=== PATIENT | male | born 1990 ===

== ENCOUNTER 2017-09-16 20:28 | Observation (INO) | payer MEDICAID ==
[2017-09-16] MEDS ORDERED: Sodium Chloride 0.9% 1,000 ML IV STA (20:43)
--- NOTE | 2017-09-16 20:49 | ED PDOC ---
HPI: General Adult Time Seen by Provider: 09/16/17 20:33 Chief Complaint (Nursing): ENT Problem Chief Complaint (Provider): ENT Problem History Per: Patient History/Exam Limitations: no limitations Onset/Duration Of Symptoms: Days (x 6 days) Current Symptoms Are (Timing): Still Present Additional Complaint(s): Gabriel Tee is a 26 year old male who presents to the emergency department for medical evaluation. Patient states since September 11, he had left-sided sore throat as well as fever, but fever resolved after 1 day. Patient was seen by Dr. Del Angel and was given consecutive steroid injections. Also tested positive for strep. Patient was prescribed Prednisone and Augmentin. Reports swelling initially decreased, but last 2 days worsen prompting ED visit. Denies shortness of breath and abdominal pain. Of note, pt. states he has a hx of narcotic drug abuse and does not want any narcotic pain meds. PMD: [place] Past Medical History Reviewed: Historical Data, Nursing Documentation, Vital Signs Vital Signs: Last Vital Signs Temp 98.7 F 09/16/17 20:31 Pulse 80 09/16/17 20:31 Resp 16 09/16/17 20:31 BP 136/94 H 09/16/17 20:31 Pulse Ox 99 09/16/17 22:59 - Medical History PMH: Asthma Denies: Chronic Kidney Disease - Surgical History Other surgeries: Right Knee Surgery - Family History Family History: States: Unknown Family Hx - Social History Current smoker - smoking cessation education provided: Yes - Immunization History Hx Tetanus Toxoid Vaccination: Yes Hx Influenza Vaccination: No Hx Pneumococcal Vaccination: No - Home Medications Home Medications: Ambulatory Orders Medication Instructions Recorded Ibuprofen [Motrin Tab] 1 tab PO Q8H 09/16/17 - Allergies Allergies/Adverse Reactions: Allergies Allergy/AdvReac Type Severity Reaction Status Date / Time No Known Allergies Allergy Verified 02/22/16 17:11 Review of Systems ROS Statement: Except As Marked, All Systems Reviewed And Found Negative ENT: Positive for: Mouth Swelling, Throat Pain (Left-sided) Respiratory: Negative for: Shortness of Breath Gastrointestinal: Negative for: Abdominal Pain Physical Exam - Reviewed Nursing Documentation Reviewed: Yes Vital Signs Reviewed: Yes - Physical Exam ENT: Positive for: Tonsillar Swelling (Left-sided), Other (Mild uvular deviation noted, airway is patent, no trismus, patient is able to swallow) Respiratory: Positive for: Normal Breath Sounds (Lungs clear). Negative for: Respiratory Distress - Laboratory Results Result Diagrams: 09/16/17 21:09 09/16/17 21:09 - ECG O2 Sat by Pulse Oximetry: 99 (RA) Pulse Ox Interpretation: Normal Medical Decision Making Medical Decision Making: Time: 20:42 Plan: - Type and Screen - CT Neck Soft Tissue with Contrast - CMP - Sodium Chloride 0.9% 1,000 ml IV 1,000 mls/hr - Unasym 3 gm Sodium Chloride 0.9% 100 ml IVPB STAT - Blood Culture - Throat Culture - Glucose, Blood, POC STAT - Infectious Mononucleosis Stat CT soft tissue neck:Enlargement of palatine tonsils, left greater than right. 3.0 x 4.0 x 4.8 cm peripherally enhancing collection within left peritonsillar region. Narrowing of airway at level of oropharynx. Case d/w JONATHAN Gallego, who requests Dr. Hooper for ENT. Case d/w Dr. Hooper and requests pt. to be kept for observation and he will perform I&D tomorrow. Pt. kept NPO after midnight. Pt. informed of results and agrees with care. Scribe Attestation: Documented by Ari Lopez, acting as a scribe for Jose Weber PA-C Provider Scribe Attestation: All medical record entries made by the Scribe were at my direction and personally dictated by me. I have reviewed the chart and agree that the record accurately reflects my personal performance of the history, physical exam, medical decision making, and the department course for this patient. I have also personally directed, reviewed, and agree with the discharge instructions and disposition. Disposition - Clinical Impression Clinical Impression: Peritonsillar abscess, Infectious mononucleosis - Patient ED Disposition Is Patient to be Admitted: Yes - Disposition Disposition Time: 22:40 Condition: STABLE - Pt Status Changed To: Hospital Disposition Of: Observation
[2017-09-16] MEDS ORDERED: Dexamethasone 10 MG in Sodium Chloride 0.9% 50 ML IVPB STA (21:08)
[2017-09-16 21:19] LABS: BASO % 0.2 % (0.0-2.0); EOS # 0.1 K/uL (0.0-0.7); HEMOGLOBIN 13.3 g/dL (12.0-18.0); LYMPH % 13.3 % (20.0-40.0); MEAN CELL VOLUME 82.8 fl (80.0-94.0); MEAN CORPUSCULAR HEMOGLOBIN 27.2 pg (27.0-31.0); MEAN CORPUSCULAR HGB CONC 32.8 g/dL (33.0-37.0); MEAN PLATELET VOLUME 9.6 fl (7.2-11.7); MONO # 1.6 K/uL (0.0-0.8); MONO % 10.9 % (0.0-10.0); NEUT % 74.6 % (50.0-75.0); RBC 4.89 Mil/uL (4.40-5.90); RED CELL DISTRIBUTION WIDTH 13.2 % (11.5-14.5); WHITE BLOOD COUNT 14.7 K/uL (4.8-10.8)
[2017-09-16 21:28] LABS: ALB/GLOB RATIO 1.1 (1.0-2.1); ALBUMIN 3.9 g/dL (3.5-5.0); ALT/SGPT 85 U/L (21-72); AST/SGOT 32 U/L (17-59); BLOOD UREA NITROGEN 18 mg/dl (9-20); CALCIUM 9.1 mg/dL (8.4-10.2); GFR AFRICAN-AMERICAN > 60; GFR NON-AFRICAN AMERICAN > 60
[2017-09-16] MEDS ORDERED: Sodium Chloride 0.9% 50 ML IV ONE (21:43)
[2017-09-16] MEDS ORDERED: Iohexol 300 100 ML IJ ONE (21:43)
--- NOTE | 2017-09-16 22:30 | CT ---
EXAM: CT Neck With Intravenous Contrast CLINICAL HISTORY: 26 years old, male; Pain; Throat pain; Additional info: L sided sore throat with pain and swelling TECHNIQUE: Axial computed tomography images of the neck with intravenous contrast. All CT scans at this facility use one or more dose reduction techniques, viz.: automated exposure control; ma/kV adjustment per patient size (including targeted exams where dose is matched to indication; i.e. head); or iterative reconstruction technique. Coronal and sagittal reformatted images were created and reviewed. CONTRAST: 95 mL of [id number] administered intravenously. COMPARISON: No relevant prior studies available. FINDINGS: Nasopharynx: Unremarkable. Oropharynx: Enlargement of palatine tonsils, left greater than right. 3.0 x 4.0 x 4.8 cm peripherally enhancing collection within left peritonsillar region. Narrowing of airway at level of oropharynx. Hypopharynx: Mild mucosal thickening along left hypopharynx. Larynx: Normal epiglottis. Trachea: Unremarkable. Retropharyngeal space: Unremarkable. Submandibular/parotid glands: Unremarkable. Glands are normal in size. Thyroid: No mass or nodule. Bones/joints: No acute fracture. Soft tissues: Subcentimeter hypodensity along thyroid cartilage, nonspecific. Vasculature: No acute findings. Lymph nodes: Shotty cervical lymph nodes, likely reactive. Sinuses: LEFT maxillary retention cyst. Lung apices: Unremarkable as visualized. IMPRESSION: 1. Tonsillitis/pharyngitis with left peritonsillar abscess. 2. Incidental/non-acute findings are described above.
[2017-09-17] MEDS: Sodium Chloride 0.9% 1,000 ML IV SCH ×3 (00:42→16:50)
[2017-09-17 07:02] LABS: BASO % 0.1 % (0.0-2.0); HEMOGLOBIN 13.6 g/dL (12.0-18.0); LYMPH # 0.7 K/uL (1.0-4.3); LYMPH % 4.1 % (20.0-40.0); MEAN CELL VOLUME 81.3 fl (80.0-94.0); MEAN CORPUSCULAR HEMOGLOBIN 27.5 pg (27.0-31.0); MEAN CORPUSCULAR HGB CONC 33.8 g/dL (33.0-37.0); MONO # 0.6 K/uL (0.0-0.8); MONO % 3.3 % (0.0-10.0); NEUT # 16.3 K/uL (1.8-7.0); NEUT % 92.5 % (50.0-75.0); PLATELET COUNT 229 K/uL (130-400); RBC 4.96 Mil/uL (4.40-5.90); RED CELL DISTRIBUTION WIDTH 13.1 % (11.5-14.5); WHITE BLOOD COUNT 17.6 K/uL (4.8-10.8)
[2017-09-17 07:37] LABS: ALB/GLOB RATIO 1.1 (1.0-2.1); ALT/SGPT 83 U/L (21-72); AST/SGOT 28 U/L (17-59); BLOOD UREA NITROGEN 15 mg/dl (9-20); CALCIUM 9.4 mg/dL (8.4-10.2); GFR AFRICAN-AMERICAN > 60; GFR NON-AFRICAN AMERICAN > 60
[2017-09-17] MEDS ORDERED: Lidocaine 2% w Epi 1:100,000 Inj IJ ONE (08:00)
[2017-09-17 09:14] LABS: LYMPHOCYTE 4 % (20-50); MONOCYTE 6 % (0-10); NEUTROPHIL 89 % (42-75); PLATELET ESTIMATE NORMAL (NORMAL); REACTIVE LYMPHOCYTES 1 % (0-0); TOTAL CELLS COUNTED 100
[2017-09-17] MEDS ORDERED: Mag&Al/Simet/Diphen/Lido 237 ML KIT PO PRN (10:32)
--- NOTE | 2017-09-17 12:08 | CP.PCM.HP ---
History of Present Illness - History of Present Illness History of Present Illness: pt admitted for left tonsilar abscess, pain is controlled at present but is getting toradol q6. pending ent eval for i/d. magic mouthwash prn no f/c, n/v.d s/s x 1 wk [employer] and tx in rmg 3-4x. pt has self-reported h/o opiod abuse, states that he occationally has gotten 1- 2 doses of iv pain meds if hospitalized but not to be dc hhome on cds Present on Admission - Present on Admission Any Indicators Present on Admission: No Review of Systems - EENT Nose/Mouth/Throat: As Per HPI, Sore Throat, Throat Swelling Past Patient History - Infectious Disease Hx of Infectious Diseases: None - Past Medical History & Family History Past Medical History?: Yes - Past Social History Smoking Status: Current Some Days Smoker - CARDIAC Hx Cardiac Disorders: No - PULMONARY Hx Respiratory Disorders: Yes Hx Asthma: Yes - NEUROLOGICAL Hx Neurological Disorder: No - HEENT Hx HEENT Problems: Yes Other/Comment: Chronic Tonsillitis - RENAL Hx Chronic Kidney Disease: No - ENDOCRINE/METABOLIC Hx Endocrine Disorders: No - HEMATOLOGICAL/ONCOLOGICAL Hx Blood Disorders: No Hx AIDS: No Hx Human Immunodeficiency Virus (HIV): No - INTEGUMENTARY Hx Dermatological Problems: No - MUSCULOSKELETAL/RHEUMATOLOGICAL Hx Musculoskeletal Disorders: No Hx Falls: No - GASTROINTESTINAL Hx Gastrointestinal Disorders: No - GENITOURINARY/GYNECOLOGICAL Hx Genitourinary Disorders: No - PSYCHIATRIC Hx Psychophysiologic Disorder: Yes Hx Substance Use: Yes (Quit 3 years ago) - SURGICAL HISTORY Hx Surgeries: Yes Other/Comment: right knee surgery 2010 - ANESTHESIA Hx Anesthesia: Yes Hx Anesthesia Reactions: No Hx Malignant Hyperthermia: No Has any member of the family had a problem w/ anesthesia?: No Meds Allergies/Adverse Reactions: Allergies Allergy/AdvReac Type Severity Reaction Status Date / Time No Known Allergies Allergy Verified 02/22/16 17:11 Physical Exam - Constitutional Appears: Well, Non-toxic, No Acute Distress - Head Exam Head Exam: ATRAUMATIC, NORMAL INSPECTION, NORMOCEPHALIC - Eye Exam Eye Exam: EOMI, Normal appearance, PERRL Pupil Exam: NORMAL ACCOMODATION, PERRL - ENT Exam ENT Exam: Mucous Membranes Moist, Normal Exam Additional comments: left tonsil enlarged/erythematous - Neck Exam Neck exam: Positive for: Normal Inspection - Respiratory Exam Respiratory Exam: Clear to Auscultation Bilateral, NORMAL BREATHING PATTERN - Cardiovascular Exam Cardiovascular Exam: REGULAR RHYTHM, RRR, +S1, +S2 - GI/Abdominal Exam GI & Abdominal Exam: Normal Bowel Sounds, Soft. absent: Tenderness - Extremities Exam Extremities exam: Positive for: full ROM, normal capillary refill, normal inspection, pedal pulses present - Back Exam Back exam: NORMAL INSPECTION - Neurological Exam Neurological exam: Alert, CN II-XII Intact, Normal Gait, Oriented x3, Reflexes Normal - Psychiatric Exam Psychiatric exam: Normal Affect, Normal Mood - Skin Skin Exam: Dry, Intact, Normal Color, Warm Results - Vital Signs Recent Vital Signs: Last Vital Signs Temp 97.4 F L 09/17/17 08:13 Pulse 79 09/17/17 08:13 Resp 20 09/17/17 08:13 BP 131/79 09/17/17 08:13 Pulse Ox 94 L 09/17/17 08:13 - Labs Result Diagrams: 09/17/17 06:30 09/17/17 06:30 Labs: Laboratory Results - last 24 hr 09/16/17 09/16/17 09/16/17 20:50 21:07 21:07 WBC RBC Hgb Hct MCV MCH MCHC RDW Plt Count MPV Neut % (Auto) Lymph % (Auto) [place] % (Auto) Eos % (Auto) Baso % (Auto) Neut # Lymph # [place] # Eos # Baso # Neutrophils % (Manual) Lymphocytes % (Manual) Reactive Lymphs % Monocytes % (Manual) Platelet Estimate RBC Morphology Sodium Potassium Chloride Carbon Dioxide Anion Gap BUN Creatinine Est GFR ( Amer) Est GFR (Non-Af Amer) POC Glucose (mg/dL) 95 Random Glucose Calcium Total Bilirubin AST ALT Alkaline Phosphatase Total Protein Albumin Globulin Albumin/Globulin Ratio Infectious [place] Assay Blood Type O POSITIVE Blood Type Confirm O POSITIVE Antibody Screen Negative BBK History Checked No verified bt 09/16/17 09/16/17 09/16/17 21:09 21:09 21:09 WBC 14.7 H RBC 4.89 Hgb 13.3 Hct 40.5 MCV 82.8 MCH 27.2 MCHC 32.8 L RDW 13.2 Plt Count 198 MPV 9.6 Neut % (Auto) 74.6 Lymph % (Auto) 13.3 L [place] % (Auto) 10.9 H Eos % (Auto) 1.0 Baso % (Auto) 0.2 Neut # 11.0 H Lymph # 2.0 [place] # 1.6 H Eos # 0.1 Baso # 0.0 Neutrophils % (Manual) Lymphocytes % (Manual) Reactive Lymphs % Monocytes % (Manual) Platelet Estimate RBC Morphology Sodium 138 Potassium 3.9 Chloride 103 Carbon Dioxide 29 Anion Gap 10 BUN 18 Creatinine 0.8 Est GFR ( Amer) > 60 Est GFR (Non-Af Amer) > 60 POC Glucose (mg/dL) Random Glucose 89 Calcium 9.1 Total Bilirubin 0.4 AST 32 ALT 85 H Alkaline Phosphatase 107 Total Protein 7.4 Albumin 3.9 Globulin 3.5 Albumin/Globulin Ratio 1.1 Infectious [place] Assay Positive H Blood Type Blood Type Confirm Antibody Screen BBK History Checked 09/17/17 09/17/17 06:30 06:30 WBC 17.6 H RBC 4.96 Hgb 13.6 Hct 40.3 MCV 81.3 MCH 27.5 MCHC 33.8 RDW 13.1 Plt Count 229 MPV 10.0 Neut % (Auto) 92.5 H Lymph % (Auto) 4.1 L [place] % (Auto) 3.3 Eos % (Auto) 0.0 Baso % (Auto) 0.1 Neut # 16.3 H Lymph # 0.7 L [place] # 0.6 Eos # 0.0 Baso # 0.0 Neutrophils % (Manual) 89 H Lymphocytes % (Manual) 4 L Reactive Lymphs % 1 H Monocytes % (Manual) 6 Platelet Estimate Normal RBC Morphology Normal Sodium 141 Potassium 4.5 Chloride 102 Carbon Dioxide 29 Anion Gap 15 BUN 15 Creatinine 0.7 L Est GFR ( Amer) > 60 Est GFR (Non-Af Amer) > 60 POC Glucose (mg/dL) Random Glucose 119 H Calcium 9.4 Total Bilirubin 0.5 AST 28 ALT 83 H Alkaline Phosphatase 99 Total Protein 7.7 Albumin 4.0 Globulin 3.7 Albumin/Globulin Ratio 1.1 Infectious [place] Assay Blood Type Blood Type Confirm Antibody Screen BBK History Checked Assessment & Plan (1) DVT prophylaxis Assessment and Plan: scd nad aehose ambulation Status: Acute (2) Infectious mononucleosis Assessment and Plan: symptomatic care ent lno contact sports, monitor abd asscessment Status: Acute (3) Peritonsillar abscess Assessment and Plan: unasyn ent toradol/magic mouth wash based on pts history, if severe uncontrolled pain occurs will igve 1 time order of narcotic pain meds, will not dc on cds Status: Acute Decision To Admit - Pt Status Changed To: Hospital Disposition Of: Observation - . Bed Request Type: Med/Surg Admitting Physician: Vic Persaud
[2017-09-17] MEDS ORDERED: Mag&Al/Simet/Diphen/Lido 237 ML KIT PO SCH (13:00)
--- NOTE | 2017-09-17 23:07 | OP ---
PROCEDURE DATE: 09/17/2017 PREOPERATIVE DIAGNOSIS: Left peritonsillar abscess. POSTOPERATIVE DIAGNOSIS: Left peritonsillar abscess. PROCEDURE: Incision and drainage of left peritonsillar abscess. SIGNIFICANT FINDINGS: Left peritonsillar abscess. DESCRIPTION OF PROCEDURE: The patient was placed in a seated position. The left peritonsillar area was injected with lidocaine with epinephrine. An incision was made in the left peritonsillar area, clamp dissection was done. Pus was noted to be coming out. Loculations were broken with a clamp. Bleeding was controlled with time. Patient tolerated the procedure well. Benny Hooper MD MTDD
[2017-09-18 00:24] VITALS: O2SAT 98
[2017-09-18 04:19] VITALS: BP 141/81; PULSE 78; RESP 17; TEMP 97.7
--- NOTE | 2017-09-18 06:31 | CP.PCM.DIS ---
Provider - Provider Date of Admission: 09/16/17 22:44 Attending physician: Vic Persaud MD Time Spent in preparation of Discharge (in minutes): 15 Diagnosis - Discharge Diagnosis (1) DVT prophylaxis Status: Acute (2) Infectious mononucleosis Status: Acute (3) Peritonsillar abscess Status: Acute Hospital Course - Lab Results Lab Results: Micro Results 09/16/17 21:05 Blood-Venous Blood Culture - Preliminary NO GROWTH AFTER 24 HOURS 09/16/17 21:09 Blood-Venous Blood Culture - Preliminary NO GROWTH AFTER 24 HOURS Most Recent Lab Values WBC 17.6 K/uL (4.8-10.8) H 09/17/17 06:30 RBC 4.96 Mil/uL (4.40-5.90) 09/17/17 06:30 Hgb 13.6 g/dL (12.0-18.0) 09/17/17 06:30 Hct 40.3 % (35.0-51.0) 09/17/17 06:30 MCV 81.3 fl (80.0-94.0) 09/17/17 06:30 MCH 27.5 pg (27.0-31.0) 09/17/17 06:30 MCHC 33.8 g/dL (33.0-37.0) 09/17/17 06:30 RDW 13.1 % (11.5-14.5) 09/17/17 06:30 Plt Count 229 K/uL (130-400) 09/17/17 06:30 MPV 10.0 fl (7.2-11.7) 09/17/17 06:30 Neut % (Auto) 92.5 % (50.0-75.0) H 09/17/17 06:30 Lymph % (Auto) 4.1 % (20.0-40.0) L 09/17/17 06:30 [place] % (Auto) 3.3 % (0.0-10.0) 09/17/17 06:30 Eos % (Auto) 0.0 % (0.0-4.0) 09/17/17 06:30 Baso % (Auto) 0.1 % (0.0-2.0) 09/17/17 06:30 Neut # 16.3 K/uL (1.8-7.0) H 09/17/17 06:30 Lymph # 0.7 K/uL (1.0-4.3) L 09/17/17 06:30 [place] # 0.6 K/uL (0.0-0.8) 09/17/17 06:30 Eos # 0.0 K/uL (0.0-0.7) 09/17/17 06:30 Baso # 0.0 K/uL (0.0-0.2) 09/17/17 06:30 Neutrophils % (Manual) 89 % (42-75) H 09/17/17 06:30 Lymphocytes % (Manual) 4 % (20-50) L 09/17/17 06:30 Reactive Lymphs % 1 % (0-0) H 09/17/17 06:30 Monocytes % (Manual) 6 % (0-10) 09/17/17 06:30 Platelet Estimate Normal (NORMAL) 09/17/17 06:30 RBC Morphology Normal (NORMAL) 09/17/17 06:30 Sodium 141 mmol/l (132-148) 09/17/17 06:30 Potassium 4.5 MMOL/L (3.6-5.0) 09/17/17 06:30 Chloride 102 mmol/L (98-107) 09/17/17 06:30 Carbon Dioxide 29 mmol/L (22-30) 09/17/17 06:30 Anion Gap 15 (10-20) 09/17/17 06:30 BUN 15 mg/dl (9-20) 09/17/17 06:30 Creatinine 0.7 mg/dl (0.8-1.5) L 09/17/17 06:30 Est GFR ( Amer) > 60 09/17/17 06:30 Est GFR (Non-Af Amer) > 60 09/17/17 06:30 POC Glucose (mg/dL) 95 mg/dL (65-110) 09/16/17 21:07 Random Glucose 119 mg/dL (75-110) H 09/17/17 06:30 Calcium 9.4 mg/dL (8.4-10.2) 09/17/17 06:30 Total Bilirubin 0.5 mg/dl (0.2-1.3) 09/17/17 06:30 AST 28 U/L (17-59) 09/17/17 06:30 ALT 83 U/L (21-72) H 09/17/17 06:30 Alkaline Phosphatase 99 U/L (38-126) 09/17/17 06:30 Total Protein 7.7 G/DL (6.3-8.2) 09/17/17 06:30 Albumin 4.0 g/dL (3.5-5.0) 09/17/17 06:30 Globulin 3.7 gm/dL (2.2-3.9) 09/17/17 06:30 Albumin/Globulin Ratio 1.1 (1.0-2.1) 09/17/17 06:30 Infectious [place] Assay Positive (NEGATIVE) H 09/16/17 21:09 Blood Type O POSITIVE 09/16/17 21:07 Blood Type Confirm O POSITIVE 09/16/17 20:50 Antibody Screen Negative 09/16/17 21:07 BBK History Checked No verified bt 09/16/17 21:07 Discharge Exam - Head Exam Head Exam: ATRAUMATIC, NORMAL INSPECTION, NORMOCEPHALIC Discharge Plan - Follow Up Plan Condition: STABLE Disposition: HOME/ ROUTINE Instructions: Abscess (GEN) Additional Instructions: per rn pt feeling well and cleare dby ent for dc. f/u rmg 2 days, rted prn, meds per med rec f/u ent as directed final dx-left peritonsilar abscess
== END 2017-09-17 21:15 | disposition home or self-care (01) ==
LOC: H.ER 20:28 → H.ERHOLD 22:44 → H.MEDSURG1 09-17 00:28
PROVIDERS: ADMIT Family Medicine; ATTEND Family Medicine
DX: J36 Peritonsillar abscess (principal); B27.90 Infectious mononucleosis, unspecified without complication; F17.200 Nicotine dependence, unspecified, uncomplicated; J35.01 Chronic tonsillitis; J45.909 Unspecified asthma, uncomplicated; F45.9 Somatoform disorder, unspecified
CPT/HCPCS: 36415; 42700; 70491; 80053; 82948; 85025; 86308; 86850; 86900; 87040; 87070; 96365; 96375; 99281; G0378; J0295; J1100; J1885; J7040; Q9967